=== PATIENT | female | born 2005 | race Caucasian/White ===

== ENCOUNTER 2025-02-11 23:58 | Emergency (ER) | payer OTHER, SELFPAY ==
--- OUTSIDE RECORDS SUMMARY | 2025-02-12 | XMS REPORT | Continuity of Care Document ---
Author Name Unknown Address [address] [facility] [address] [place] [address] [facility] [address] [place] [address] Care Team Providers Care Operator Engineer Name Role Phone Gracie Fisher Primary Care Physician Medications Ordered Medication Name Filled Medication Name Start Date Stop Date Current Medication? Ordering Clinician Indication Dosage Frequency Signature (SIG) Comments Components Source TAKE 1 TABLET DAILY. 02-20 00:00: 00 Yes [id number] Norris Grant TAKE 1 TABLET BY MOUTH EVERY DAY 02-20 00:00: 00 Yes Norris Grant TAKE 1 TABLET BY MOUTH EVERY DAY 01-26 00:00: 00 Yes Norris Grant TAKE 1 TABLET DAILY. 01-26 00:00: 00 08-02 00:00 :00 No [id number] Norris Grant TAKE 1 TABLET DAILY. 01-26 00:00: 00 08-02 00:00 :00 No [id number] Norris Grant INSTILL 4 DROPS TWICE A DAY IN LEFT EAR 07-28 00:00: 00 Yes Norris Grant Vital Signs Vital Name Observation Time Observation Value Comments S vahe BP Systolic 2024-12-16 13:23:00 125 mm[Hg] Christopher Grant BP Diastolic 2024-12-16 13:23:00 93 mm[Hg] Bk Grant Weight Measured 2024-12-16 13:23:00 136.40 pounds Norris Grant Height Measured 2024-12-16 13:23:00 66.54 inches Norris Grant Body Temperature 2024-12-16 13:23:00 98.30 degrees Norris F Rudy Heart Rate 2024-12-16 13:23:00 90.00 /min Kyung en F Rudy Respiratory Rate 2024-12-16 13:23:00 18.00 /min Norris F Rudy Height Measured 2024-09-22 08:50:00 66.54 inches Norris F Rudy Body Temperature 2024-09-22 08:50:00 97.90 degrees Norris F Rudy Heart Rate 2024-09-22 08:50:00 93.00 /min Kyung en F Rudy Respiratory Rate 2024-09-22 08:50:00 17.00 /min Norris F Rudy BP Systolic 2024-09-22 08:50:00 120 mm[Hg] Step hen F Rudy BP Diastolic 2024-09-22 08:50:00 84 mm[Hg] Bk phen F Rudy Weight Measured 2024-09-22 08:50:00 128.80 pounds Norris F Rudy BP Systolic 2023-02-20 16:26:00 149 mm[Hg] Step hen F Rudy BP Diastolic 2023-02-20 16:26:00 95 mm[Hg] Bk phen F Rudy Weight Measured 2023-02-20 16:26:00 133.40 pounds Norris F Rudy Height Measured 2023-02-20 16:26:00 66.54 inches Norris F Rudy Body Temperature 2023-02-20 16:26:00 97.70 degrees Norris F Rudy Heart Rate 2023-02-20 16:26:00 60.00 /min Kyung en F Rudy Respiratory Rate 2023-02-20 16:26:00 18.00 /min Norris F Rudy BP Systolic 2023-01-26 10:02:00 120 mm[Hg] Step hen F Rudy BP Diastolic 2023-01-26 10:02:00 84 mm[Hg] Bk phen F Rudy Weight Measured 2023-01-26 10:02:00 130.00 pounds Norris F Rudy Height Measured 2023-01-26 10:02:00 66.54 inches Norris F Rudy Body Temperature 2023-01-26 10:02:00 98.30 degrees Norris F Rudy Heart Rate 2023-01-26 10:02:00 90.00 /min Kyung en F Rudy Respiratory Rate 2023-01-26 10:02:00 18.00 /min Norris Grant BP Systolic 2023-01-24 14:27:00 141 mm[Hg] Christopher Grant BP Diastolic 2023-01-24 14:27:00 98 mm[Hg] Bk Grant Weight Measured 2023-01-24 14:27:00 128.60 pounds Norris Grant Height Measured 2023-01-24 14:27:00 66.54 inches Norris Grant Body Temperature 2023-01-24 14:27:00 98.40 degrees Norris Grant Heart Rate 2023-01-24 14:27:00 58.00 /min Kyung Grant Respiratory Rate 2023-01-24 14:27:00 Norris Grant Encounters Start Date/Time End Date/Time Encounter Type Admission Type Attending [facility] Care Department Encounter ID Source 2024-12-16 13:25:41 2024-12-16 13:25:41 Outpatient SFA SFA [id number] Norris Grant 2024-12-16 00:00:00 2024-12-16 00:00:00 Outpatient Visit SFA [id number] Norris Grant 2024-09-22 08:41:28 2024-09-22 08:41:28 Outpatient SFA SFA [id number] Norris Grant 2024-09-22 00:00:00 2024-09-22 00:00:00 Outpatient Visit SFA [id number] Norris Grant 2023-02-20 16:20:12 2023-02-20 16:20:12 Outpatient SFA SFA [id number] Norris Grant 2023-02-20 00:00:00 2023-02-20 00:00:00 Outpatient Visit SFA [id number] Norris Grant 2023-01-26 09:57:06 2023-01-26 09:57:06 Outpatient SFA SFA [id number] Norris Grant 2023-01-26 00:00:00 2023-01-26 00:00:00 Outpatient Visit SFA [id number] Norris Grant 2023-01-24 14:20:02 2023-01-24 14:20:02 Outpatient SFA SFA [id number] Norris Grant 2023-01-24 00:00:00 2023-01-24 00:00:00 Outpatient Visit SFA [id number] Norris Grant Notes Date/Time Note Provider Source Norris JeterHeather [facility]2024-11-07 00:00:00 Norris Heather [facility]2023-04-07 00:00:00 Norris [facility]2023-03-13 00:00:00 Norris [facility]2023-03-11 00:00:00 [facility]
[2025-02-12 00:49] LABS: Specific Gravity 1.005 (1.005-1.030); Urine Bilirubin NEGATIVE (Negative); Urine Blood Negative (Negative); Urine Clarity Clear (Clear); Urine Color Colorless (Yellow); Urine Glucose NEGATIVE (Negative); Urine Ketones NEGATIVE (Negative); Urine Microscopic Reflex YN NO UMIC; Urine Nitrite NEGATIVE (Negative); Urine Protein NEGATIVE (Negative); Urine Urobilinogen Normal (Normal)
[2025-02-12 00:53] LABS: Absolute Basophils 0.1 K/uL (0-0.5); Absolute Eosinophils 0.1 K/uL (0-0.5); Absolute Lymphocytes (CBC) 2.7 K/uL (0.7-4.9); Absolute Monocytes 0.8 K/uL (0.1-1.3); Absolute Neutrophil 5.1 K/uL (1.8-8.0); Basophils % 0.6 % (0-1.3); Eosinophils % 0.8 % (0-4.4); Hematocrit 40.3 % (36.0-45.0); Hemoglobin 14.3 g/dL (12.0-15.0); Lymphocytes % 30.7 % (15.3-44.8); MCH 29.2 pg (27.0-35.0); MCHC 35.5 g/dL (32.0-36.0); MCV 82.2 fL (80-100); MPV 7.2 fL (7.6-11.3); Monocytes % 8.8 % (3.3-12.3); Neutrophils % 59.1 % (41.7-73.7); Platelets 374 thou/uL (152-406)
[2025-02-12 00:55] LABS: PT Prothrombin Time 13.5 SECONDS (10-13.0); PTT, Activated Partial Thromb 29.1 SECONDS (27.2-37.4); Protime INR 1.19
[2025-02-12 00:56] LABS: Barbiturates NEGATIVE (NEGATIVE); Benzodiazepines NEGATIVE (NEGATIVE); Cocaine NEGATIVE (NEGATIVE); METHAMPHETAM NEGATIVE (NEGATIVE); Methadone NEGATIVE (NEGATIVE); Opiates NEGATIVE (NEGATIVE); Phencyclidine NEGATIVE (NEGATIVE); THC Cannibis NEGATIVE (NEGATIVE)
[2025-02-12 01:04] LABS: ALT/SGPT 19 U/L (13-56); AST/SGOT 18 U/L (15-37); Albumin 4.2 g/dL (3.4-5.0); Albumin/Globulin Ratio 1.2 (1.1-1.8); Alkaline Phosphatase 68 U/L (45-117); Anion Gap 11.5 mEq/L (5.0-15.0); BUN Blood Urea Nitrogen 7 mg/dL (7-18); Bicarbonate 23 mEq/L (21-32); Bilirubin Total 0.5 mg/dL (0.2-1.0); Globulin 3.6 g/dL (2.3-3.5); Glomerular Filtration Rate 116 ml/min (=/>90); Glucose Level 99 mg/dL (74-106); Potassium 3.5 mEq/L (3.5-5.1); Protein, Total 7.8 g/dL (6.4-8.2); Sodium Level 141 mEq/L (136-145)
[2025-02-12 01:05] LABS: Bilirubin Direct < 0.2 mg/dL (0-0.2); Bilirubin Indirect, Calculated 0.3 mg/dL (0.2-0.8)
[2025-02-12] MEDS ORDERED: THIAMINE 200 MG/2 ML INJ ONE (01:34)
[2025-02-12] MEDS ORDERED: MULTIVITAMINS 10 ML VIAL (INJ) IV ONE (01:34)
[2025-02-12] MEDS ORDERED: FOLIC ACID 5 MG/ML VIAL ONE (01:35)
[2025-02-12] MEDS ORDERED: NA CHLORIDE 0.9% 1,000 ML ONE (01:36)
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
--- NOTE | 2025-02-12 05:01 | EDPHYS ---
Physician Documentation [facility] Name: Davida Castellanos Age: 19 yrs Sex: Female : 2005 Arrival Date: 02/11/2025 Time: 23:58 Bed 17 Private MD: DIEGO Physician Adam Greco HPI: 02/12 00:00 This 19 yrs old Female presents to ER via Law Enforcement with complaints of Suicidal cp Ideation. 00:00 The patient presents to the emergency department with Patient is a 19-year-old female cp who presents to the emergency department in custody of law enforcement. Patient has been placed on a chcf by law enforcement for suicidal ideations. Law enforcement reports patient has been making threats of suicide today and that she exited a moving vehicle in an attempt to harm herself. Patient is uncooperative. TAILER IN: 00:09 LMP N/A - control method, Not rg5 Historical: - Allergies: 00:09 No Known Allergies; rg5 - Home Meds: 00:09 None [Active]; rg5 - PMHx: 00:09 None; rg5 - Immunization history:: Adult Immunizations unknown. - Infectious Disease History:: Denies. - Social history:: Smoking status: unknown Patient/guardian denies using alcohol. ROS: 00:05 Unable to obtain ROS due to patient being uncooperative, cp Exam: 00:10 Constitutional: The patient appears in no acute distress, alert, awake, non-toxic, well cp developed, well nourished, 00:10 Head/Face: Normocephalic, atraumatic. cp 00:10 Eyes: Periorbital structures: appear normal, Conjunctiva: normal, no exudate, no injection, Lids and lashes: appear normal, bilaterally, 00:10 ENT: External ear(s): are unremarkable, Nose: is normal, Mouth: Lips: moist, Oral mucosa: moist, Posterior pharynx: Airway: no evidence of obstruction, patent, 00:10 Chest/axilla: Inspection: normal, 00:10 Cardiovascular: Rate: tachycardic, 00:10 Respiratory: the patient does not display signs of respiratory distress, Respirations: normal, no use of accessory muscles, no retractions, labored breathing, is not present, Breath sounds: are clear throughout, no decreased breath sounds, no stridor, no wheezing, 00:10 Abdomen/GI: Inspection: abdomen appears normal, 00:10 Neuro: Orientation: to person, place \T\ time. Mentation: able to follow commands, Motor: moves all fours, strength is normal, 00:10 Psych: Behavior/mood is uncooperative, Affect is animated, Judgement / Insight is impaired. Delusions/hallucinations are not present. 01:10 ECG was reviewed by the Attending Physician. cp Vital Signs: 02/11 23:58 BP 143 / 82; Pulse 102; Resp 19; Temp 98.4; Pulse Ox 96% on R/A; Weight 59.87 kg; lg3 Height 5 ft. 7 in. ; Pain 0/10; 23:58 BP 143 / 82; Pulse 102; Resp 18; Pulse Ox 96% on R/A; Pain 0/10; lg3 02/12 08:36 BP 142 / 85; Pulse 104; Pulse Ox 96% ; am7 12:58 BP 118 / 79; Pulse 88; Resp 18; Pulse Ox 100% on R/A; ld1 02/11 23:58 Body Mass Index 20.67 (59.87 kg, 170.18 cm) - Percentile 38.2 % lg3 02/11 23:58 Pain Scale: Adult lg3 23:58 Pain Scale: Adult lg3 Maury Coma Score: 00:09 Eye Response: spontaneous(4). Motor Response: obeys commands(6). Verbal Response: rg5 oriented(5). Total: 15. MDM: 00:10 Medical Screening Exam initiated cp 00:30 Differential diagnosis: drug withdrawal. acute psychotic break, depression, psychosis cp secondary to non-compliance. 02:00 Data reviewed: vital signs, nurses notes, lab test result(s), EKG. cp 05:00 Counseling: I had a detailed discussion with the patient and/or guardian regarding the cp historical points, exam findings, and any diagnostic results supporting the discharge/admit diagnosis, lab results. 02/12 00:20 Order name: Acetaminophen; Complete Time: 01:20 cp 02/12 00:20 Order name: Basic Metabolic Panel; Complete Time: 01:20 cp 02/12 03:20 Interpretation: Normal except: CL 110. cp 02/12 00:20 Order name: CBC with Diff; Complete Time: 01:20 cp 02/12 00:20 Order name: ETOH Level; Complete Time: 01:20 cp 02/12 01:21 Interpretation: Reviewed. cp 02/12 00:20 Order name: Hepatic Function; Complete Time: 01:20 cp 02/12 00:20 Order name: PT-INR; Complete Time: 01:20 cp 02/12 00:20 Order name: Test, Urine; Complete Time: 01:20 cp 02/12 00:20 Order name: Ptt, Activated; Complete Time: 01:20 cp 02/12 00:20 Order name: Salicylate; Complete Time: 01:20 cp 02/12 00:20 Order name: Urinalysis w/ reflexes; Complete Time: :20 cp 02/12 00:20 Order name: Urine Drug Screen; Complete Time: :20 cp 02/12 04:39 Order name: ETOH Level; Complete Time: 05:30 cp 02/12 05:30 Interpretation: Reviewed. 02/12 11:55 Order name: XRAY Hand RIGHT 3 View; Complete Time: 12:58 rn 02/12 00:20 Order name: EKG - Nurse/Tech; Complete Time: 01:30 cp 02/12 00:20 Order name: IV Saline Lock; Complete Time: 00:43 cp 02/12 00:20 Order name: Labs collected and sent; Complete Time: 00:43 cp 02/12 00:20 Order name: Suicide Screening ([place]); Complete Time: 00:53 cp 02/12 00:20 Order name: Wound Care; Complete Time: 00:44 cp EC:10 Rate is 77 beats/min. Rhythm is regular. NV interval is normal. QRS interval is normal. cp QT interval is normal. T waves are Inverted in lead aVR. Interpreted by me. Reviewed by me. Administered Medications: 01:48 Drug: Banana Bag - (Multivitamin IV 1 amp, NS 0.9% IV 1000 ml, Thiamine IV 100 mg, rg5 foLIC Acid IVPB 1 mg) IV at 250 ml/hr once Route: IV; Rate: 250 ml/hr; Site: right forearm; 02:55 Follow up: IV Status: Completed infusion; IV Intake: 1000ml rg5 Disposition: 02/13 00:00 Chart complete. cp Disposition Summary: 02/12/25 05:00 Transfer Ordered Notes: Transfer Location: [facility] Facility cp Reason: Higher level of care cp Condition: Stable cp Problem: new cp Symptoms: have improved cp Accepting Physician: doctor(02/12/25 12:59) ld1 Diagnosis - Suicidal ideations cp Forms: - Medication Reconciliation Form cp - SBAR form cp Addendum: 02/14/2025 15:30 Co-signature as Attending Physician, Adam Greco MD I agree with the assessment and c doran plan of care. Signatures: Dispatcher [employer] EDCT Adam Greco MD MD cha Nieto, Roman, MD MD rn Page, Corey, PA PA cp Jessica Brumfield RN RN ld1 Jaspal William RN RN rg5 Corrections: (The following items were deleted from the chart) 02/12 00:20 00:20 ACETAMINOPHEN+C.LAB.BRZ ordered. EDMS EDMS 00:20 00:20 BASIC METABOLIC PANEL+C.LAB.BRZ ordered. EDMS EDMS 00:20 00:20 CBC+H.LAB.BRZ ordered. EDMS EDMS 00:20 00:20 ETHANOL+C.LAB.BRZ ordered. EDMS EDMS 00:20 00:20 HEPATIC FUNCTION+C.LAB.BRZ ordered. EDMS EDMS 00:20 00:20 PROTIME (+INR)+COAG.LAB.BRZ ordered. EDMS EDMS 00:20 00:20 Test, Urine+UC.LAB.BRZ ordered. EDMS EDMS 00:20 00:20 PTT, ACTIVATED+COAG.LAB.BRZ ordered. EDMS EDMS 00:20 00:20 SALICYLATE+C.LAB.BRZ ordered. EDMS EDMS 00:20 00:20 Urinalysis+U.LAB.BRZ ordered. EDMS EDMS 00:20 00:20 URINE DRUG SCREEN+UC.LAB.BRZ ordered. EDMS EDMS 12:59 05:00 doctor cp ld1
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
[2025-02-12 13:04] VITALS: TEMP 98.4
[2025-02-12 13:07] VITALS: BP 118/79; O2SAT 100
--- NOTE | 2025-02-13 11:20 | EKG ---
Test Date: 2025-02-12 Test Time: 01:03:20 Tar Chaser: KRISTIAN MEASUREMENT RESULTS: Intervals: Rate: 77 ID: [id number] QRSD: 78 QT: 386 QTc: 436 [place]: P: 68 ID: [id number] QRS: 94 T: 31 INTERPRETIVE STATEMENTS: Normal sinus rhythm Rightward axis Anterior infarct, age undetermined Abnormal ECG No previous ECG available for comparison Electronically Signed On 02-13-25 11:17:58 CDT by Sonu Moore
== END 2025-02-12 12:59 ==
LOC: ER 23:58
DX: R45.851 Suicidal ideations (principal)
CPT/HCPCS: 36415; 80048; 80076; 80143; 80179; 80307; 81003; 81025; 82077; 85025; 85610; 85730; 93005; 96365; 99285; J3411; J7030